=== PATIENT | female | born 1935 | race Caucasian/White ===

== ENCOUNTER 2016-09-11 15:11 | Emergency (ER) | payer OTHER, MEDICARE ==
[~2016-09-11] VITALS: Ht 160 cm; Wt 131.5 kg
[2016-09-11 15:23] VITALS: BP 169/79
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
[2016-09-11] MEDS ORDERED: HYDR-971 PO (17:16)
== END 2016-09-11 17:31 | disposition home or self-care (01) ==
LOC: ER 15:11
DX: S13.9XXA Sprain of joints and ligaments of unspecified parts of neck, initial encounter (principal); R51 Headache; H40.9 Unspecified glaucoma; E03.9 Hypothyroidism, unspecified; I10 Essential (primary) hypertension; Z90.49 Acquired absence of other specified parts of digestive tract; Z96.659 Presence of unspecified artificial knee joint; V49.59XA Passenger injured in collision with other motor vehicles in traffic accident, initial encounter; Y93.89 Activity, other specified; Y92.89 Other specified places as the place of occurrence of the external cause; Y99.8 Other external cause status
CPT/HCPCS: 70450; 72125; 72170; 99284-25